=== PATIENT | male | born 1950 | race Caucasian/White ===

== ENCOUNTER 2025-02-03 20:41 | Emergency (ER) | payer MEDICARE, OTHER ==
[~2025-02-03] VITALS: Ht 160 cm; Wt 78.5 kg
[2025-02-03 22:59] VITALS: BP 167/79; TEMP 97.5
[2025-02-04] MEDS ORDERED: CLIN300C12 PO (00:42)
[2025-02-04 01:14] VITALS: O2SAT 98
== END 2025-02-04 01:15 | disposition home or self-care (01) ==
LOC: ER 20:55
DX: S90.32XA Contusion of left foot, initial encounter (principal); S60.221A Contusion of right hand, initial encounter; S60.222A Contusion of left hand, initial encounter; S80.02XA Contusion of left knee, initial encounter; S80.01XA Contusion of right knee, initial encounter; K21.9 Gastro-esophageal reflux disease without esophagitis; E03.9 Hypothyroidism, unspecified; E11.9 Type 2 diabetes mellitus without complications; E78.5 Hyperlipidemia, unspecified; I10 Essential (primary) hypertension; M17.11 Unilateral primary osteoarthritis, right knee; W18.39XA Other fall on same level, initial encounter; Y93.89 Activity, other specified; Y92.89 Other specified places as the place of occurrence of the external cause; Y99.8 Other external cause status
CPT/HCPCS: 73130-TC; 73564-TC; 73630-TC

== ENCOUNTER 2025-02-05 16:41 | Emergency (ER) | payer MEDICARE, OTHER ==
[~2025-02-05] VITALS: Ht 160 cm; Wt 78.5 kg
[~2025-02-05 16:41] MED LIST: CLIN300C12 PO
[2025-02-05 16:47] VITALS: TEMP 98.2
[2025-02-05 17:45] VITALS: BP 144/85; O2SAT 97
== END 2025-02-05 17:45 | disposition home or self-care (01) ==
LOC: ER 16:49
DX: S90.32XA Contusion of left foot, initial encounter (principal); I11.9 Hypertensive heart disease without heart failure; E11.9 Type 2 diabetes mellitus without complications; E03.9 Hypothyroidism, unspecified; E78.5 Hyperlipidemia, unspecified; K21.9 Gastro-esophageal reflux disease without esophagitis; W18.39XA Other fall on same level, initial encounter; Y93.89 Activity, other specified; Y92.89 Other specified places as the place of occurrence of the external cause; Y99.8 Other external cause status